=== PATIENT | female | born 1970 | race Caucasian/White ===

== ENCOUNTER → 2018-07-01 | Outpatient (CLI) | payer OTHER ==
--- NOTE | 2018-07-02 10:26 | MM ---
Reason for exam: screening (asymptomatic). Last mammogram was performed 4 years and 2 months ago. History: Family history of breast cancer in 3 maternal aunts. Took hormonal contraceptives for 3 years. Physical Findings: A clinical breast exam by your physician is recommended on an annual basis and results should be correlated with mammographic findings. MG Screening Mammo w CAD Bilateral CC and MLO view(s) were taken. Prior study comparison: May 12, 2014, mammogram, performed at [facility]. The breast tissue is heterogeneously dense. This may lower the sensitivity of mammography. Finding: There is a 10 mm obscured oval mass in the inner quadrant, middle position of the right breast. New finding since May 12, 2014. ASSESSMENT: Incomplete: need additional imaging evaluation, BI-RAD 0 RECOMMENDATION: Special view mammogram of the right breast. If lesion persists on supplemental views, image directed ultrasound is recommended. [facility] will attempt to contact patient to return for supplemental views and ultrasound if indicated.
== END | disposition home or self-care (01) ==
LOC: RADMAMWWP 07:33
DX: Z12.31 Encounter for screening mammogram for malignant neoplasm of breast (principal)
CPT/HCPCS: 77067

== ENCOUNTER → 2018-07-16 | Outpatient (CLI) | payer OTHER ==
--- NOTE | 2018-07-16 10:35 | MM ---
Reason for exam: additional evaluation requested from abnormal screening. Last mammogram was performed less than 1 month ago. History: Family history of breast cancer in 3 maternal aunts. Took hormonal contraceptives for 10 years beginning at age 18. Physical Findings: Nurse did not find any significant physical abnormalities on exam. MG Work Up Mamm w CAD RT Spot compression CC, spot compression MLO, and LM view(s) were taken of the right breast. Prior study comparison: July 01, 2018, bilateral MG screening mammo w CAD. May 12, 2014, mammogram, performed at [facility]. Nodule upper inner right breast persists 8.6cm from nipple. These results were verbally communicated with the patient and result sheet given to the patient on 07/16/18. ASSESSMENT: Incomplete: need additional imaging evaluation, BI-RAD 0 RECOMMENDATION: Ultrasound of the right breast.
--- NOTE | 2018-07-16 10:38 | USB ---
Reason for exam: additional evaluation requested from abnormal screening. History: Family history of breast cancer in 3 maternal aunts. Took hormonal contraceptives for 10 years beginning at age 18. US Breast Workup Limited RT Technologist: Maryse Rader RT (R)(M) Right limited breast ultrasound including focal area of concern, retroareolar and axilla demonstrates a 1.0 x 0.5 x 0.8cm mixed, hypoechoic lesion at 3 o'clock. These results were verbally communicated with the patient and result sheet given to the patient on 07/16/18. ASSESSMENT: Suspicious, BI-RAD 4 RECOMMENDATION: Ultrasound core biopsy of the right breast. Called with mammographic findings and has scheduled an appointment for the patient for 07/30/18 at 9:[address] Hathaway. Biopsy scheduled for 07/21/18 at 12:20. PRELIMINARY REPORT CALLED AND FAXED TO DR. HATHAWAY ON 07/16/18.
== END ==
LOC: RADMAMWWP 07:01
DX: R92.8 Other abnormal and inconclusive findings on diagnostic imaging of breast (principal)
CPT/HCPCS: 77065

== ENCOUNTER → 2018-07-21 | Day surgery (SDC) | payer OTHER ==
[2018-07-21 11:26] VITALS: RESP 16; TEMP 98.1; BMI 39.9
[2018-07-21 12:12] VITALS: BP 132/83; PULSE 64
--- NOTE | 2018-07-21 14:58 | USB ---
EXAMINATION TYPE: US biopsy breast VAD RT, MG diagnostic mammo RT wo CAD DATE OF EXAM: 07/21/2018 CLINICAL HISTORY: R92.8 ABN MAMMO. TECHNIQUE: Ultrasound guided core biopsy of right breast. COMPARISON: NONE FINDINGS: The procedure of ultrasound guided core biopsy was explained to the patient. Benefits, alt ernatives, and risks were discussed. An informed consent was then obtained. The patient was placed in supine positioning for imaging and for the procedure. The overlying skin w as prepped and draped in usual sterile fashion. Lidocaine buffered with bicarbonate was used as anes thetic into the skin and subcutaneous tissue up to area of concern in the right breast. A betsy was m pablo with surgical scalpel. Under ultrasound guidance, a 12-gauge vacuum assisted biopsy gun device was used to obtain 2 core soco ples. Lesion is no longer present and presumably represents a cyst. Clip marker was placed. Post proc edural mammogram demonstrates placement. The patient tolerated the procedure well without any immediate complication. The patient was kept in the radiology department for short stay after the procedure and then discharged home in stable condi tion. IMPRESSION: Successful, uncomplicated ultrasound guided core biopsy of area of concern in the right b reast, full pathology results to follow.
== END ==
LOC: RADUSWWP 10:55
DX: N60.91 Unspecified benign mammary dysplasia of right breast (principal); N60.31 Fibrosclerosis of right breast; R92.8 Other abnormal and inconclusive findings on diagnostic imaging of breast; Z91.09 Other allergy status, other than to drugs and biological substances
CPT/HCPCS: 88305; 77065; 19083; A4648; J2001

== ENCOUNTER → 2019-07-28 | Outpatient (CLI) | payer OTHER ==
--- NOTE | 2019-07-28 14:44 | MM ---
Reason for exam: additional evaluation requested from prior study. Last mammogram was performed 1 year ago. History: Patient is postmenopausal. Family history of breast cancer in 3 maternal aunts. Benign US biopsy breast VAD RT of the right breast, July 21, 2018. Took hormonal contraceptives for 10 years beginning at age 18. Physical Findings: Nurse did not find any significant physical abnormalities on exam. MG Diagnostic Mammo w CAD MICHELLE Bilateral CC and MLO view(s) were taken. Prior study comparison: July 21, 2018, right breast MG diagnostic mammo RT wo CAD. July 16, 2018, right breast MG work up mamm w CAD RT. The breast tissue is heterogeneously dense. This may lower the sensitivity of mammography. There is a 5mm mass left upper outer quadrant 11-12cm from nipple. Ultrasound will be performed. No suspicious abnormality on the right. These results were verbally communicated with the patient and result sheet given to the patient on 07/28/19. ASSESSMENT: Incomplete: need additional imaging evaluation, BI-RAD 0 RECOMMENDATION: Ultrasound of the left breast.
--- NOTE | 2019-07-28 14:46 | USB ---
Reason for exam: additional evaluation requested from abnormal screening. History: Patient is postmenopausal. Family history of breast cancer in 3 maternal aunts. Benign US biopsy breast VAD RT of the right breast, July 21, 2018. Took hormonal contraceptives for 10 years beginning at age 18. US Breast Limited LT Left limited breast ultrasound including focal area of concern, retroareolar and axilla demonstrates a 0.4 x 0.4 x 0.5cm lesion at 3 o'clock, appears as an anechoic cyst with well defined post wall and trace increased through transmission. 6 month follow up precautionary ultrasound as only mild posterior enhancement and new finding on mammogram. These results were verbally communicated with the patient and result sheet given to the patient on 07/28/19. ASSESSMENT: Probably benign, BI-RAD 3 RECOMMENDATION: Ultrasound of the left breast in 6 months.
== END | disposition home or self-care (01) ==
LOC: RADMAMWWP 13:08
DX: R92.8 Other abnormal and inconclusive findings on diagnostic imaging of breast (principal)
CPT/HCPCS: 77066

== ENCOUNTER → 2020-08-10 | Outpatient (CLI) | payer OTHER ==
--- NOTE | 2020-08-11 19:45 | MR ---
EXAMINATION TYPE: MR knee RT wo con DATE OF EXAM: 08/10/2020 COMPARISON: None HISTORY: R knee pain Multiplanar multiecho imaging of the right knee was performed without contrast. The anterior and posterior cruciate ligaments are intact. There is a knee joint effusion. There is na rrowing of the joint spaces with spurring of the femoral and tibial condyles. The lateral meniscus is intact. There is mild thinning of the medial meniscus. I see no evidence of meniscal tear. I see no focal bone destruction. There is some increased signal in the patella consistent with edema. I see no fracture line. There is subchondral degenerative cyst formation in the patella. The collateral ligam ents are intact. On the T2 images there is slight increased signal in the base of the tibial spines and also the later al tibial condyle. IMPRESSION: No evidence of ligamentous or meniscal tear. Knee joint effusion with osteoarthritic changes in all of the joint spaces. There is some degenerativ e cyst formation in the patella and mild patellar edema. There is moderate osteoarthritis of the wei llofemoral joint. There is mild increased signal in the intercondylar proximal tibia and the lateral tibial condyle con sistent with mild bone bruise. Small degenerative cysts at the base of the tibial spines.
== END | disposition home or self-care (01) ==
LOC: RADMRIMAIN 13:35
PROVIDERS: ATTEND Orthopaedic Surgery
DX: M17.11 Unilateral primary osteoarthritis, right knee (principal); R60.0 Localized edema; R93.6 Abnormal findings on diagnostic imaging of limbs

== ENCOUNTER 2020-10-31 10:16 | Day surgery (SDC) | payer OTHER ==
[2020-10-24 10:31] VITALS: BMI 26.8
--- NOTE | 2020-10-30 13:54 | HP ---
HISTORY AND PHYSICAL Surgery is 10/31/2020. Aleshia Urrutia is a 50-year-old patient seen with progressive right knee pain. We discussed options for treatment. She elected to proceed with arthroscopy. Consent was obtained. PAST MEDICAL HISTORY: Hypertension. PAST SURGICAL HISTORY: D and C, laparoscopy. DAILY MEDICATIONS: 1. Hydrochlorothiazide. 2. Multivitamins. ALLERGIES: None. SOCIAL HISTORY: She denies current tobacco use. PHYSICAL EXAMINATION: Physical evaluation of the right knee: Range of motion is 0-130. Mild effusion. Tenderness medial joint line. Positive medial Elidia's. Crepitus patellofemoral joint. Ligaments stable. Hip rotation without pain. Distal neurovascular exam intact. Right knee radiographs revealed mild osteoarthritis MRI right knee revealed osteochondral defect and osteoarthritic changes, effusion. IMPRESSION: 1. Internal derangement, right knee with osteochondral tear. 2. Right knee osteoarthritis. 3. Hypertension. PLAN: Right knee arthroscopy with chondroplasty and debridement. MMODL / IJN: [id number] /
[~2020-10-31 10:16] MED LIST: DEXAMETHASONE SOD PHOSPHATE 4 MG/ML 1 ML VIAL IV ONE; HYDROmorphone 0.5 MG/0.5 ML SYRINGE IVP PRN; LACTATED RINGERS 1,000 ML IV SCH; LIDOCAINE 1% (10MG/ML) FOR IV START INTRADERMA PRN; MIDAZOLAM 2 MG/2 ML VIAL IV PRN; ONDANSETRON 4 MG/2 ML VIAL IVP ONE
[2020-10-31] MEDS ORDERED: PROPOFOL 10 MG/ML 20 ML VIAL IV ONE (11:35)
[2020-10-31] MEDS ORDERED: LIDOCAINE 1% INJ 10MG/ML (20 ML MDV) ONE (11:35)
[2020-10-31] MEDS ORDERED: SUCCINYLCHOLINE CHLORIDE 100 MG/5 ML SYR IV ONE (11:35)
[2020-10-31] MEDS ORDERED: fentaNYL (PF) 50 MCG/ML 2 ML AMP ONE (11:35)
[2020-10-31] MEDS ORDERED: MIDAZOLAM 2 MG/2 ML VIAL ONE (11:35)
[2020-10-31] MEDS ORDERED: BUPIVACAINE (PF) 0.25% 30 ML VIAL SQ ONE (11:37)
--- NOTE | 2020-10-31 12:29 | P.OP ---
Date of Procedure: 10/31/20 Preoperative Diagnosis: Internal arrangement right knee Postoperative Diagnosis: 1. Tear lateral meniscus right knee 2. 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 Reactive synovitis medial, lateral and suprapatellar compartments right knee Procedure(s) Performed: 1. Arthroscopic partial lateral meniscectomy right knee 2. Arthroscopic chondroplasty medial femoral condyle right knee 3. Arthroscopic chondroplasty patellofemoral joint right knee 4. Arthroscopic partial synovectomy medial, lateral and suprapatellar compartments right knee Anesthesia: CHARISSEA, local Surgeon: Manpreet Qureshi Estimated Blood Loss (ml): 5 Pathology: none sent Condition: stable Disposition: PACU Indications for Procedure: 50-year-old patient seen with progressive right knee pain. After treatment options were discussed, she elected to proceed with arthroscopy. Operative Findings: See description of procedure Description of Procedure: Patient was taken to the operative suite. Patient underwent a general anesthetic by the department of anesthesia. Patient was given preoperative antibiotics. The right lower extremity was placed in a well-padded arthroscopic leg jordan. The right leg was prepped and draped in the normal sterile orthopedic fashion. A lateral parapatellar and suprapatellar incision was made. Trochars were inserted. Arthroscopy was initiated. Suprapatellar pouch revealed diffuse thick reactive synovitis. The patellofemoral joint appeared to articulate congruently. There was grade 3/4 chondromalacia of both the femoral sulcus and patella. The scope was guided into the medial gutter. No loose bodies or plica were identified. The scope was then guided into the medial compartment. A medial parapatellar incision was made. Trocar inserted followed by probe. The medial meniscus was probed and it was found to be stable. There were some grade 1 chondromalacia changes of the anterior aspect medial femoral condyle with some small osteochondral tears present. There was thick reactive synovitis anteriorly. I performed a chondroplasty of the medial femoral condyle. I performed a partial synovectomy decompressing the reactive synovitis. The shaver was removed. There was good decompression of the synovitis. The residual osteochondral surface was stable. Scope and probe were then guided into the intercondylar notch. Cruciates were identified, probed and found to be stable. The scope and probe were then guided into lateral compartment. There was a radial tear mid body lateral meniscus. There were some grade 1 chondromalacia changes lateral compartment but no osteochondral tears were noted. There was some thick reactive synovitis anteriorly. I performed a partial lateral meniscectomy down to stable meniscal tissue. I performed a partial synovectomy decompressing the thick reactive synovitis. The shaver was removed. The residual meniscus was probed and found to be stable. There was good decompression of synovitis. The scope was in guided back into the suprapatellar compartment. I introduced a motorized shaver into the suprapatellar compartment. I performed a chondroplasty of the patellofemoral joint getting down to stable osteochondral tissue. I performed a partial synovectomy decompressing the thick reactive synovitis. Shaver was removed. There was good decompression of synovitis. Again noted grade 3/4 chondromalacia of both the patella and femoral sulcus. I took one more look on the entire knee, no residual debris. Instruments were now removed from the joint. The joint was infiltrated with .25% Marcaine. Steri-Strips were applied to the portal sites. Sterile dressings were applied. The patient was placed into a VADIM hose. No tourniquet was utilized. The patient was awakened, transferred to a bed and taken to recovery stable satisfactory condition.
[2020-10-31 12:32] VITALS: TEMP 97.5
[2020-10-31] MEDS ORDERED: KETOROLAC 15 MG/ML 1 ML VIAL IVP ONE (12:50)
[2020-10-31 14:13] VITALS: BP 136/83; PULSE 65; RESP 18
== END 2020-10-31 14:45 | disposition home or self-care (01) ==
LOC: OR 10:16
PROVIDERS: ATTEND Orthopaedic Surgery
DX: M23.200 Derangement of unspecified lateral meniscus due to old tear or injury, right knee (principal); M22.41 Chondromalacia patellae, right knee; M65.861 Other synovitis and tenosynovitis, right lower leg; M17.11 Unilateral primary osteoarthritis, right knee; I10 Essential (primary) hypertension; Z98.890 Other specified postprocedural states; Z79.899 Other long term (current) drug therapy; G47.33 Obstructive sleep apnea (adult) (pediatric); K21.9 Gastro-esophageal reflux disease without esophagitis; Z91.048 Other nonmedicinal substance allergy status
CPT/HCPCS: 81025; 29881; J2250; J1100; J0690; J2405; J2001; J3010; J1885; J0330; J2704; J1170

== ENCOUNTER → 2020-12-20 | Outpatient (CLI) | payer OTHER ==
--- NOTE | 2020-12-21 11:35 | MM ---
Reason for exam: additional evaluation requested from prior study. Last mammogram was performed 1 year and 5 months ago. History: Patient is postmenopausal. Family history of breast cancer in 3 maternal aunts. Benign US biopsy breast VAD RT of the right breast, July 21, 2018. Took hormonal contraceptives for 10 years beginning at age 18. Physical Findings: Nurse did not find any significant physical abnormalities on exam. MG Diagnostic Mammo w CAD MICHELLE Bilateral CC and MLO view(s) were taken. Prior study comparison: July 28, 2019, bilateral MG diagnostic mammo w CAD MICHELLE. July 21, 2018, right breast MG diagnostic mammo RT wo CAD. The breast tissue is heterogeneously dense. This may lower the sensitivity of mammography. Previous mammotome biopsy in the right breast. There is no discrete abnormality. No significant new findings when compared with previous films. These results were verbally communicated with the patient and result sheet given to the patient on 12/20/20. ASSESSMENT: Benign, BI-RAD 2 RECOMMENDATION: Routine screening mammogram of both breasts in 1 year.
== END | disposition home or self-care (01) ==
LOC: RADMAMWWP 14:24
PROVIDERS: ATTEND Physician Assistant
DX: R92.8 Other abnormal and inconclusive findings on diagnostic imaging of breast (principal)
CPT/HCPCS: 77066

== ENCOUNTER → 2021-03-26 | Outpatient (CLI) | payer OTHER ==
--- NOTE | 2021-03-26 12:09 | MR ---
EXAMINATION TYPE: MR knee LT wo con DATE OF EXAM: 03/26/2021 COMPARISON: Outside left knee x-ray March 12, 2021 HISTORY: Left knee pain TECHNIQUE: Multiplanar, multisequence imaging of the left knee is performed without IV contrast. FINDINGS: MEDIAL MENISCUS: Truncated appearance to posterior horn with adjacent posterior thin-walled cystic ch gautam suspicious for full-thickness meniscal tear. LATERAL MENISCUS: Anterior and posterior horns are intact without tear. CRUCIATE LIGAMENTS: The anterior and posterior cruciate ligaments are intact and unremarkable. COLLATERAL LIGAMENTS: The medial collateral ligament and lateral collateral ligament complex are inta ct and unremarkable. EXTENSOR MECHANISM: Visualized quadriceps and patellar tendons are intact. EFFUSION: Small size suprapatellar joint effusion. POPLITEAL CYST: No popliteal/jain cyst. TRICOMPARTMENT SPACES: Mild/moderate tricompartment joint space loss and spurring. CARTILAGE: Chondromalacia patella with cartilaginous loss particularly the inferior half of the poste rior patellar pole. BONE MARROW SIGNAL: Heterogeneous increased T2 signal through the posterior patellar pole centrally. OTHER: No additional significant abnormality is appreciated. IMPRESSION: 1. Fairly moderate tricompartment degenerative changes greatest patellofemoral compartment as detaile d above. 2. Small-size suprapatellar joint effusion. 3. Suspect full-thickness meniscal tear posterior horn medial meniscus.
== END | disposition home or self-care (01) ==
LOC: RADMRIMAIN 11:11
PROVIDERS: ATTEND Orthopaedic Surgery
DX: M17.12 Unilateral primary osteoarthritis, left knee (principal)

== ENCOUNTER → 2021-12-26 | Outpatient (CLI) | payer OTHER ==
--- NOTE | 2021-12-27 13:55 | MM ---
Reason for exam: screening (asymptomatic). Last mammogram was performed 1 year ago. History: Patient is postmenopausal. Family history of breast cancer in 3 maternal aunts. Benign US biopsy breast VAD RT of the right breast, July 21, 2018. Took hormonal contraceptives for 10 years beginning at age 18. Physical Findings: A clinical breast exam by your physician is recommended on an annual basis and results should be correlated with mammographic findings. MG 3D Screening Mammo W/Cad Bilateral CC and MLO view(s) were taken. Prior study comparison: December 20, 2020, bilateral MG diagnostic mammo w CAD MICHELLE. July 28, 2019, bilateral MG diagnostic mammo w CAD MICHELLE. The breast tissue is heterogeneously dense. This may lower the sensitivity of mammography. There is no discrete abnormality. No significant changes when compared with prior studies. ASSESSMENT: Negative, BI-RAD 1 RECOMMENDATION: Routine screening mammogram of both breasts in 1 year.
== END | disposition home or self-care (01) ==
LOC: RADMAMWWP 16:24
DX: Z12.31 Encounter for screening mammogram for malignant neoplasm of breast (principal); Z78.0 Asymptomatic menopausal state; Z80.3 Family history of malignant neoplasm of breast
CPT/HCPCS: 77063; 77067

== ENCOUNTER → 2023-03-12 | Outpatient (CLI) | payer OTHER ==
--- NOTE | 2023-03-13 07:14 | MM ---
Reason for Exam: Screening (asymptomatic). Last mammogram was performed 1 year(s) and 2 month(s) ago. Patient History: Menarche at age 15. First Full-Term at age 24. Postmenopausal. Patient has history of breast feeding. Hormonal Contraceptives for 10 years from age 18 until age 28. 07/21/2018, Benign Core Biopsy on the right side. Maternal aunt (a) had breast cancer, age 45. Maternal aunt (b) had breast cancer, age 46. Maternal aunt (c) had breast cancer, age 40. Mother had breast cancer, age 72. Risk Values: Yumiko 5 year model risk: 2.2%. NCI Lifetime model risk: 19.1%. Prior Study Comparison: 07/28/2019 Bilateral Diagnostic Mammogram, [facility]. 12/20/2020 Bilateral Diagnostic Mammogram, [facility]. 12/26/2021 Bilateral Screening Mammogram, [facility]. Tissue Density: The breast tissue is heterogeneously dense. This may lower the sensitivity of mammography. Findings: Analyzed By CAD. Mammotome biopsy clip right breast redemonstrated. There is no suspicious group of microcalcifications or new suspicious mass in either breast. Overall Assessment: Benign, BI-RAD 2 Management: Screening Mammogram of both breasts in 1 year. . Patient should continue monthly self-breast exams. A clinical breast exam by your physician is recommended on an annual basis. This exam should not preclude additional follow-up of suspicious palpable abnormalities. Note on Yumiko scores and lifetime risk: 1. A Yumiko score greater than 3% is considered moderate risk. If this is the case, consider specialist referral to assess eligibility for a risk reducing agent. 2. If overall lifetime risk for the development of breast cancer is 20% or higher, the patient may qualify for future screening with alternating mammogram and breast MRI. Electronically signed and approved by: Bala Washington M.D.
== END | disposition home or self-care (01) ==
LOC: RADMAMWWP 14:54
DX: Z12.31 Encounter for screening mammogram for malignant neoplasm of breast (principal); Z78.0 Asymptomatic menopausal state; Z80.3 Family history of malignant neoplasm of breast
CPT/HCPCS: 77063; 77067

== ENCOUNTER 2023-09-02 07:11 | Day surgery (SDC) | payer OTHER ==
[~2023-09-02 07:11] MED LIST changes: -DEXAMETHASONE SOD PHOSPHATE 4 MG/ML 1 ML VIAL IV ONE; -HYDROmorphone 0.5 MG/0.5 ML SYRINGE IVP PRN; -MIDAZOLAM 2 MG/2 ML VIAL IV PRN; -ONDANSETRON 4 MG/2 ML VIAL IVP ONE
[2023-09-02] MEDS ORDERED: LACTATED RINGERS 1,000 ML IV ONE (07:30)
[2023-09-02] MEDS ORDERED: PROPOFOL 10 MG/ML 20 ML VIAL IV ONE (08:07)
[2023-09-02] MEDS ORDERED: LIDOCAINE 2% (PF) 20 MG/ML 5 ML VIAL ONE (08:07)
[2023-09-02 08:12] VITALS: RESP 16; TEMP 97.9
--- NOTE | 2023-09-02 08:23 | P.PCN ---
Date of Procedure: 09/02/23 Procedure(s) Performed: Brief history: Patient is a pleasant 53-year-old -[place] female scheduled for an elective upper endoscopy as well as colonoscopy as a part of evaluation of GERD/intermittent nausea vomiting and change in bowel habits since her bariatric surgery in January of this year. She has history of gastric bypass surgery performed in January of this year and since has been having GI symptoms. Procedure performed: Esophagogastroduodenoscopy with biopsy Colonoscopy Preoperative diagnosis: GERD/intermittent nausea vomiting Change in bowel habits esthesia: MAC Procedure: After informed consent was obtained from the patient was brought into the endoscopy unit and IV sedation was administered by anesthesia under continuous monitoring. Initially upper endoscopy was done. The Olympus GF 160 video endoscope was inserted inserted into the mouth and esophagus intubated without any difficulty and was gradually advanced into the stomach. The gastric pouch had mild gastritis. There was evidence of gastric bypass surgery with Day-en-Y anastomosis. The scope was advanced into the afferent and efferent loop that appears normal. The scope was then withdrawn into the gastric pouch and biopsies were done from the gastric body there was some gastritis. The scope was then withdrawn into the esophagus. The GE junction was located at 40 cm to the incisors. It appeared regular with no erythema erosions or ulcerations. Rest of the esophagus appeared normal. Patient tolerated the procedure well. At this time the patient continued to remain sedation. Initial digital rectal examination was normal. Olympus CF 160 video colonoscope was then inserted into the rectum and gradually advanced to the cecum without any difficulty. Careful examination was performed as the scope was gradually being withdrawn. The prep was excellent. The cecum, ascending colon, transverse colon, descending colon, sigmoid colon and rectum appeared normal. Retroflexion was performed in the rectum and no lesions were noted. Patient tolerated the procedure well. Impression: 1. Upper endoscopy revealed evidence of gastritis and gastric pouch and normal Day-en-Y anastomosis. No evidence of esophagitis 2. Colonoscopy was within normal limits with no evidence of colorectal neoplasi a Recommendations: Findings of this examination were discussed with the patient as well as her family. She was advised to follow with the biopsy results. Continue with Protonix 40 mg as needed and follow antireflux measures. Recommend small frequent meals. Use [id number] MiraLAX as needed for the chronic constipation. Follow up in office in 3-4 weeks.
[2023-09-02 09:26] VITALS: BP 100/78; PULSE 60
== END 2023-09-02 09:19 | disposition home or self-care (01) ==
LOC: ORWHC2ENDO 07:11
PROVIDERS: ATTEND Internal Medicine Gastroenterology
DX: K31.89 Other diseases of stomach and duodenum (principal); K29.70 Gastritis, unspecified, without bleeding; K21.9 Gastro-esophageal reflux disease without esophagitis; R19.4 Change in bowel habit; G47.33 Obstructive sleep apnea (adult) (pediatric); Z79.899 Other long term (current) drug therapy; Z98.84 Bariatric surgery status; Z96.659 Presence of unspecified artificial knee joint; Z98.890 Other specified postprocedural states; Z91.048 Other nonmedicinal substance allergy status
CPT/HCPCS: 81025; 88305; 45378; 43239; J2704; J2001

== ENCOUNTER → 2024-06-02 | Outpatient (CLI) | payer OTHER ==
--- NOTE | 2024-06-23 09:52 | MM ---
Reason for Exam: Screening (asymptomatic). Last mammogram was performed 1 year(s) and 3 month(s) ago. Patient History: Menarche at age 15. First Full-Term at age 24. Postmenopausal. Patient has history of breast feeding. Hormonal Contraceptives for 10 years from age 18 until age 28. 07/21/2018, Benign Core Biopsy on the right side. Maternal aunt (a) had breast cancer, age 45. Maternal aunt (b) had breast cancer, age 46. Maternal aunt (c) had breast cancer, age 40. Mother had breast cancer, age 72. Risk Values: Yumiko 5 year model risk: 2.0%. NCI Lifetime model risk: 13.0%. Prior Study Comparison: 12/20/2020 Bilateral Diagnostic Mammogram, [facility]. 12/26/2021 Bilateral Screening Mammogram, [facility]. 03/12/2023 Bilateral MG 3D screening mammo w/cad, [facility]. Tissue Density: There are scattered areas of fibroglandular density. Findings: Analyzed By CAD. Right breast: There is no suspicious group of microcalcifications or new suspicious mass. Left breast: There is no suspicious group of microcalcifications or new suspicious mass. Overall Assessment: Negative, BI-RAD 1 Management: Screening Mammogram of both breasts in [address] [facility] will attempt to contact patient to return for supplemental views and ultrasound if indicated. Patient should continue monthly self-breast exams. A clinical breast exam by your physician is recommended on an annual basis. This exam should not preclude additional follow-up of suspicious palpable abnormalities. Note on Yumiko scores and lifetime risk: 1. A Yumiko score greater than 3% is considered moderate risk. If this is the case, consider specialist referral to assess eligibility for a risk reducing agent. 2. If overall lifetime risk for the development of breast cancer is 20% or higher, the patient may qualify for future screening with alternating mammogram and breast MRI. Electronically signed and approved by: Kee Contreras DO
== END | disposition home or self-care (01) ==
LOC: RADMAMWWP 12:00
PROVIDERS: ATTEND Family Medicine
DX: Z12.31 Encounter for screening mammogram for malignant neoplasm of breast (principal); Z78.0 Asymptomatic menopausal state; Z80.3 Family history of malignant neoplasm of breast
CPT/HCPCS: 77063; 77067

== ENCOUNTER 2024-09-07 07:12 | Day surgery (SDC) | payer OTHER ==
[2024-09-07] MEDS: IV FLUID CONTINUATION 1,000 ML IV ONE (07:49)
[2024-09-07 07:58] VITALS: RESP 16; TEMP 98
[2024-09-07] MEDS: LACTATED RINGERS 1,000 ML IV SCH (08:02)
[2024-09-07] MEDS ORDERED: LIDOCAINE 1% INJ 10MG/ML (20 ML MDV) ONE (08:38)
[2024-09-07] MEDS ORDERED: PROPOFOL 10 MG/ML 20 ML VIAL IV ONE (08:38)
--- NOTE | 2024-09-07 09:08 | P.PCN ---
Date of Procedure: 09/07/24 Procedure(s) Performed: BRIEF HISTORY: Patient is a 54-year-old, pleasant, -[place] female discussed and of anoscopy as a part evaluation of severe GERD for the last several months duration. She has been Protonix 40 mg twice daily despite which continues to remain symptomatic and has helped upper endoscopy evaluate further. She has history of gastric bypass surgery several years ago. PROCEDURE PERFORMED: Esophagogastroduodenoscopy with biopsy. PREOPERATIVE DIAGNOSIS: Longstanding history of GERD. IV sedation per anesthesia. PROCEDURE: After informed consent was obtained, the patient was brought into the endoscopy unit. IV sedation was administered by Anesthesia under continuous monitoring. Initially the Olympus GIF-140 video endoscope was inserted into the mouth. Esophagus intubated without any difficulty. It was gradually advanced into the stomach. There was evidence of gastric bypass surgery with Day-en-Y anastomosis identified. The anastomosis appeared normal. The afferent and efferent loops appeared normal. The gastric pouch was completely normal. The scope was then withdrawn into the esophagus. The GE junction was located at 38 cm from the incisors. Small hiatal hernia noted. The esophagus appeared normal. There were no erosions or ulcerations seen, biopsies were done from the distal esophagus and the patient tolerated the procedure well. IMPRESSION: 1. Evidence of gastric bypass surgery with Day-en-Y anastomosis that appeared normal. 2. Small hiatal hernia. 3. No evidence of esophagitis or Gross's esophagus RECOMMENDATIONS: The findings of this examination were discussed with the patient as well as her family. She will continue with Protonix 40 mg twice daily and follow antireflux measures and she will be seen in the office in 2 weeks..
[2024-09-07 09:30] VITALS: BP 128/68; PULSE 65
== END 2024-09-07 10:05 | disposition home or self-care (01) ==
LOC: ORWHC2ENDO 07:12
PROVIDERS: ATTEND Internal Medicine Gastroenterology
DX: K21.9 Gastro-esophageal reflux disease without esophagitis (principal); K44.9 Diaphragmatic hernia without obstruction or gangrene; G47.33 Obstructive sleep apnea (adult) (pediatric); Z79.899 Other long term (current) drug therapy; Z98.84 Bariatric surgery status; Z91.048 Other nonmedicinal substance allergy status
CPT/HCPCS: 88305; 43239; J2003; J2704